=== PATIENT | female | born 1990 | race Caucasian/White ===

== ENCOUNTER 2018-11-01 08:58 | Emergency (ER) | payer OTHER ==
[~2018-11-01] VITALS: Ht 167.6 cm; Wt 73.5 kg
[~2018-11-01 08:58] MED LIST: NABUMETONE500 MG PO; NEURONTIN300 MG PO; PERCOCET 5/3251 TAB PO
== END 2018-11-01 13:58 | disposition home or self-care (01) ==
LOC: ER 08:58
DX: J45.998 Other asthma (principal)

== ENCOUNTER 2024-03-04 11:43 | Emergency (ER) | payer OTHER ==
[~2024-03-04] VITALS: Ht 167.6 cm; Wt 76.2 kg
[2024-03-04] MEDS ORDERED: CEPHALEXIN750 MG PO (13:36)
[2024-03-04] MEDS ORDERED: CALAMINE SUSPE177 ML TOP (13:36)
== END 2024-03-04 14:26 | disposition home or self-care (01) ==
LOC: ER 11:44
DX: L01.09 Other impetigo (principal); J45.909 Unspecified asthma, uncomplicated

== ENCOUNTER 2024-12-04 06:00 | Day surgery (SDC) | payer OTHER ==
[2024-11-28 09:49] LABS: BASO % 0.5 % (0.1-1.2); EOS % 1.6 % (0.7-7.0); HEMATOCRIT 34.8 % (34.1-44.9); HEMOGLOBIN 11.3 g/dL (11.2-15.7); LYMPH # 1.69 (1.18-3.74); LYMPH % 27.8 % (19.3-53.1); MEAN CORPUSCULAR HEMOGLOBIN 28.5 pg (25.6-32.2); MONO # 0.65 (0.24-0.82); MONO % 10.7 % (4.7-12.5); NEUT # 3.59 (1.56-6.13); NEUT % 59.2 % (34.0-71.1); PLATELET COUNT 307 K/uL (163-369); RED BLOOD COUNT 3.97 M/uL (3.93-5.22); RED CELL DISTRIBUTION WIDTH 14.2 % (11.6-14.4)
[2024-11-28 10:14] LABS: INR 1.06; PARTIAL THROMBOPLASTIN TIME 28.8 SECONDS (22.0-34.0); PROTHROMBIN TIME 11.5 SECONDS (9.0-11.5)
[2024-11-28 10:46] LABS: ALBUMIN 3.7 gm/dL (3.4-5.0); BILIRUBIN TOTAL 0.5 mg/dL (0.3-1.2); CALCIUM 8.5 mg/dL (8.5-10.1); CREATININE SERUM 0.58 mg/dL (0.55-1.02); GLOBULINA 3.7 G/DL (2.4-3.5); POTASSIUM 4.57 mEq/L (3.5-5.1); TOTAL PROTEIN 7.4 gm/dL (6.4-8.2); TSH 2.17 uIU/mL (0.358-3.74)
[2024-11-28 10:55] LABS: PH,URINE 6.5 (5.0-8.0); URINE APPEARANCE Clear; URINE BILIRRUBIN Negative (NEGATIVE); URINE BLOOD Negative; URINE COLOR Yellow; URINE GLUCOSE Negative (NEGATIVE); URINE KETONE Negative (NEGATIVE); URINE LEUKOCYTE Negative; URINE NITRATE Negative; URINE PROTEIN Negative (NEGATIVE); URINE UROBILINOGEN 0.2 E.U./dl
[2024-11-28 11:05] LABS: URINE BACTERIA 1309.3 uL (0.0-1933); URINE EPITHELIAL CELLS 15.6 uL (0.0-38.8); URINE RBC 13.8 uL (0.0-20.8); URINE WBC 6.6 uL (0.0-23.2)
[~2024-12-04 06:00] MED LIST changes: +CALAMINE SUSPE177 ML TOP; +CEPHALEXIN750 MG PO
[2024-12-04] MEDS ORDERED: CEFOXITIN SODIUM 2,000 MG VIAL IV ONE (07:42)
[2024-12-04] MEDS ORDERED: POVIDONE-IODINE 118 ML BOTT TOP ONE (07:42)
[2024-12-04] MEDS ORDERED: MORPHINE SULFATE 4 MG/ML VIAL IV PRN (09:00)
[2024-12-04] MEDS ORDERED: PROMETHAZINE HCL 50 MG/ML AMPUL IM ONE (09:00)
[2024-12-04] MEDS ORDERED: NAPR500T14 PO (09:02)
[2024-12-04] MEDS ORDERED: MONODOX100 MG PO (09:02)
[2024-12-04] MEDS ORDERED: MORPHINE SULFATE 4 MG/ML VIAL IV ONE (10:10)
== END 2024-12-04 14:30 | disposition home or self-care (01) ==
LOC: CIR.AMB 06:00
PROVIDERS: ATTEND Obstetrics & Gynecology
DX: D25.0 Submucous leiomyoma of uterus (principal); N84.0 Polyp of corpus uteri; N92.0 Excessive and frequent menstruation with regular cycle